=== PATIENT | male | born 1970 | race Caucasian/White ===

== ENCOUNTER → 2017-11-10 10:09 | Outpatient (CLI) | payer BC, SELFPAY ==
--- NOTE | 2017-11-10 10:21 | XR_ITS ---
XR KUB HISTORY: Left flank pain with hematuria ITS.REASON: KIDNEY STONE ORDERING PHYSICIAN: Kylee Barrett PATIENT AGE: 47 years COMPARISON: None FINDINGS: The bowel gas pattern is unremarkable. No obvious obstruction.. No abnormal calcifications are evident. No obvious renal or ureteral calculi.. There is lumbar spondylosis with endplate osteophytes. Surgical clips right upper quadrant IMPRESSION: No obvious renal or ureteral calculi
== END ==
PROVIDERS: PCP Nurse Practitioner; Visit Provider Nurse Practitioner
DX: N20.0 Calculus of kidney (principal)
CPT/HCPCS: 74018

== ENCOUNTER → 2019-11-13 11:52 | Outpatient (CLI) | payer MEDICAID, SELFPAY ==
[2019-11-14 15:51] LABS: Covid-19 Nasal PCR Sendout Lex NOT DETECTED
== END ==
PROVIDERS: PCP Nurse Practitioner; Visit Provider Nurse Practitioner
DX: Z03.818 Encounter for observation for suspected exposure to other biological agents ruled out (principal)
CPT/HCPCS: U0004

== ENCOUNTER → 2020-01-21 15:34 | Outpatient (CLI) | payer MEDICAID, SELFPAY ==
[2020-01-21 15:50] LABS: Basophils # 0.1 K/mm3 (0-0.2); Basophils % 0.4 % (0.1-2.0); Eosinophils # 0.1 K/mm3 (0.0-0.4); Hematocrit 48.6 % (42.0-52.0); Hemoglobin 15.9 g/dL (14.1-18.0); Lymphocytes # 1.6 K/mm3 (0.7-4.5); Lymphocytes % 12.2 % (10-50); Mean Corpuscular HGB Conc 32.8 g/dL (31.8-35.4); Mean Corpuscular Hemoglobin 26.3 pg (27.0-31.2); Mean Corpuscular Volume 80.2 fl (80-94); Mean Platelet Volume 8.8 fl (7.4-10.4); Monocytes # 0.9 K/mm3 (0.1-1.0); Monocytes % 6.8 % (1.7-9.3); Neutrophils # 10.6 K/mm3 (1.8-7.8); Neutrophils % 79.5 % (37.0-80.0); Platelet Count 176 K/mm3 (142-424); Red Blood Count 6.06 M/mm3 (4.60-6.20); Red Cell Distribution Width 15.2 % (11.5-17.5); White Blood Count 13.3 K/mm3 (4.8-10.8)
--- NOTE | 2020-01-21 15:51 | XR_ITS ---
PROCEDURE: XR WRIST LT MIN 3V CLINICAL INDICATION: PAIN IN LEFT WRIST Left wrist pain and swelling COMPARISON: CR WRL3 WRIST-3 VIEWS-LT from 10/12/2015 FINDINGS: No fracture or dislocation. No lytic or blastic change. There is normal mineralization. The joint spaces are well-preserved. No significant degenerative/arthritic changes. No erosive changes evident. Other findings:None. IMPRESSION: No acute findings. Dictated by: Gurdeep Newberry MD 01/22/2020 06:37 Gurdeep Newberry MD in [facility] 01/22/2020 06:37
== END ==
LOC: LAB 15:34 → RAD 15:48
PROVIDERS: PCP Nurse Practitioner; Visit Provider Nurse Practitioner Family
DX: M25.532 Pain in left wrist (principal); M25.432 Effusion, left wrist
CPT/HCPCS: 36415; 73110; 84550; 85025